=== PATIENT | male | born 1980 | race Caucasian/White ===

== ENCOUNTER 2017-10-25 09:01 | Outpatient (CLI) | payer OTHER | END 2017-10-25 09:02 | disposition home or self-care (01) | LOC: SC 09:01 | PROVIDERS: ATTEND Internal Medicine Pulmonary Disease | DX: G47.30 Sleep apnea, unspecified (principal); G47.10 Hypersomnia, unspecified; R06.83 Snoring; G47.8 Other sleep disorders | CPT/HCPCS: 99203; 99212 ==

== ENCOUNTER 2018-01-16 19:21 | Outpatient (CLI) | payer OTHER | END 2018-01-16 19:22 | disposition home or self-care (01) | LOC: SC 19:21 | PROVIDERS: ATTEND Internal Medicine Pulmonary Disease | DX: G47.33 Obstructive sleep apnea (adult) (pediatric) (principal); G47.61 Periodic limb movement disorder | CPT/HCPCS: 95810 ==

== ENCOUNTER 2018-02-08 09:06 | Outpatient (CLI) | payer OTHER | END 2018-02-08 09:07 | disposition home or self-care (01) | LOC: SC 09:06 | PROVIDERS: ATTEND Nurse Practitioner Family | DX: G47.33 Obstructive sleep apnea (adult) (pediatric) (principal); G47.61 Periodic limb movement disorder | CPT/HCPCS: 99212; 99214 ==

== ENCOUNTER 2018-04-26 11:08 | Outpatient (CLI) | payer OTHER | END 2018-04-26 11:09 | disposition home or self-care (01) | LOC: SC 11:08 | PROVIDERS: ATTEND Nurse Practitioner Family | DX: G47.33 Obstructive sleep apnea (adult) (pediatric) (principal) | CPT/HCPCS: 99212; 99214 ==

== ENCOUNTER 2018-06-05 10:16 | Outpatient (CLI) | payer OTHER | END 2018-06-05 10:17 | disposition home or self-care (01) | LOC: SC 10:16 | PROVIDERS: ATTEND Nurse Practitioner Family | DX: G47.33 Obstructive sleep apnea (adult) (pediatric) (principal) | CPT/HCPCS: 99212; 99214 ==

== ENCOUNTER 2018-09-19 10:12 | Outpatient (CLI) | payer OTHER | END 2018-09-19 10:13 | disposition home or self-care (01) | LOC: SC 10:12 | PROVIDERS: ATTEND Nurse Practitioner Family | DX: G47.33 Obstructive sleep apnea (adult) (pediatric) (principal) | CPT/HCPCS: 99212; 99214 ==

== ENCOUNTER 2018-12-25 10:23 | Outpatient (CLI) | payer OTHER ==
[2018-12-25 11:16] VITALS: BP 120/80
--- NOTE | 2018-12-25 11:16 | SLEEP CARE CONSULTATION ---
Information from patient questionnaire entered by Angela Rodriguez. I have reviewed and concur with the information entered by Angela Rodriguez. This document represents the service I personally performed and the decisions made by me, Tahira Lind, RN, MSN, WELDER ASSEMBLER. History of Present Illness Previous diagnosis: Mild, Obstructive Sleep Apnea-Hypopnea Syndrome AHI: 6.9 Reason for CPAP/BiPAP follow up: other (2 month follow up - pressure change) Equipment type: CPAP Equipment obtained from: [facility] Mask style: Full face Mask brand: Respironics Backup mask available: Yes Last cushion change: a week ago Prior sleep studies: Yes Year and Where: 2017 [facility], [place] CPAP Compliance Data - Data Reviewed with Patient Average duration of nightly device use: 5H 3M Compliance rate %: 70.0 Current pressure setting (cmH2O): 8-12 Humidity settin Heated hose settin Average residual AHI: 4.2 Subjective Missed days of use due to: reports: other (falling asleep on couch and training ) Patient concerns: reports: mask leak noise (every other night, less since mask cushion update a few days ago / he washes mask every 3 days. ), nasal congestion (mild, not interferring with CPAP use. ), dry mouth, nose, throat (dry day and night but worse at night. ), other. denies: aerophagia, mask discomfort, air blowing in eyes, condensation in mask/hose, epistaxis Observed to snore while using device: No Current pressure setting perceived as: comfortable On therapy, patient: reports: sleeping better, awakening more refreshed, being more awake and alert during the day, more rested overall, drowsiness while driving (twice and pulled over to rest. ) Initial [place] Sleepiness Scale score: 17 Current [place] Sleepiness Scale score: 9 Allergies and Home Medications Known drug allergies: No (cats and pollen) Home medication list reviewed: Yes Allergy and home medication list: Medication Name (generic/name brand) Strength & Dosage Excedrin prn Claritin 10mg tab as needed Zantac 150mg tab two as needed Flonase Two sprays per nostril as needed Allergy List Cats Pollen Review of Systems Review of systems same as previous: Yes Physical Exam Blood Pressure: 120/80 Cuff size: long Heart Rate: 75 O2 Saturation: 98 Height: 5 ft 10.75 in Weight: 194 lb Body Mass Index: 27.2 BMI Classification: Overweight Impression and Plan 1. Obstructive Sleep Apnea-Hypopnea Syndrome, mild, with good treatment compl iance and good apnea control. On CPAP therapy, there is improved sleep quality and feels more rested overall. To decrease mask leaks, in addition to changing mask cushion regularly, he is advised to clean mask daily as skin oils can cause mask to slip in sleep. To incorporate more easily in routine, he is advised to take mask to bathroom when gets up to wash teeth and wash mask then or use a CPAP wipe. This allows it to dry and be ready when he goes to bed. For his oral dryness, he is to increase humidity and reduce heated hose as discussed. Try a 5 humidity and 2 heated hose. He is planning on retiring in 6 months and starting the [facility] for [facility] of his CPAP. He was advised to contact [facility] for questions about if CPAP is paid for. I again discussed the benefit of achieving more sleep for optimal mental and physical function. If he is unable to get a minimum of 7 hours of sleep then 6 hours is goal to reduce health risks and sleepiness symptoms. Patient's apnea severity and rationale for treatment to reduce apnea, improve sleep quality and reduce cardiovascular and cerebrovascular events was reviewed. I also reviewed the benefit of consistent device use of CPAP for attention deficit. I also reviewed effect of weight to apnea risk. * Continue CPAP pressure at 8-10 cmH2O * adjsut humidity and heated hose * Wash mask daily * Notify me if snoring with mask or feeling that the pressure is too much or too little * Attempt to lose weight * Return for follow up in 6 months , or sooner if concerns arise I spent 100% of this 28 minute visit face to face with the patient with greater than 50% of this was spent time counseling the patient and coordination of care.
== END 2018-12-25 10:24 | disposition home or self-care (01) ==
LOC: SC 10:23
PROVIDERS: ATTEND Nurse Practitioner Family
DX: G47.33 Obstructive sleep apnea (adult) (pediatric) (principal)
CPT/HCPCS: 99212; 99214

== ENCOUNTER 2019-08-09 09:47 | Outpatient (CLI) | payer OTHER ==
--- NOTE | 2019-08-09 09:42 | SLEEP CARE CONSULTATION ---
Information from patient questionnaire entered by Anjelica Samuels. I have reviewed and concur with the information entered by Anjelica Samuels. This document represents the service I personally performed and the decisions made by me, Tahira Lind, RN, MSN, CARDIO TECH. History of Present Illness Service Date and Time: 08/09/2019 0900 Previous diagnosis: Mild, Obstructive Sleep Apnea-Hypopnea Syndrome AHI: 6.9 Reason for follow up: six month Equipment type: CPAP Equipment obtained from: [place] (getting supplies as needed) Mask style: Full face Backup mask available: Yes Last cushion change: a couple of weeks ago CPAP Compliance Data - Data Reviewed with Patient Average duration of nightly device use: 3.25 Compliance rate %: 23.3 (180) Current pressure setting (cmH2O): 8-10 Humidity settin Heated hose settin Average residual AHI: 9.4 Central apnea: 0.4 Obstructive apnea: 0.9 Hypopnea: 8.1 Average large leak: 1 hr 30 min Subjective Missed days of use due to: reports: other (compliance fell while working through marital difficulties, reduced CPAP use and not sleeping well. ) Patient concerns: reports: mask discomfort (wonders if mask too small), condensation in mask/hose (none recently ), dry mouth, nose, throat (dry mouth - humidity unit replaced in April and settings put to 3/3). denies: aerophagia, air blowing in eyes, mask leak noise, nasal congestion (using ), epistaxis Observed to snore while using device: No Current pressure setting perceived as: comfortable On therapy, patient: reports: sleeping better, awakening more refreshed, being more awake and alert during the day, more rested overall. denies: drowsiness while driving Initial [place] Sleepiness Scale score: 17 Allergies and Home Medications Home medication list reviewed: No (no changes ) Review of Systems Review of systems same as previous: Yes Physical Exam Height: 5 ft 10.75 in Weight: 193 lb (home weight - stable ) Body Mass Index: 27.1 BMI Classification: Overweight Impression and Plan 1. Obstructive Sleep Apnea-Hypopnea Syndrome, mild , with poor treatment compliance and elevated residual apnea. On CPAP therapy, the patient has better sleep quality and is more rested overall. Patient is pleased with benefit of CPAP. However, compliance fell while working through marital difficulties, with reduced CPAP use and not sleeping well. Questions answered as to goal of compliance and answered. The patients pressure will be changed to autoCPAP 9-12 cmH20 For elevation of residual AHI. Patient advised to contact me if pressure change is uncomfortable so that it can be adjusted. Goals for apnea control discussed. I also discussed other mask styles but patient states he is a mouth breather due to difficulty breathing through nose even with reduced nasal congestion from Flonase. Mask refitting will be ordered to reduce oral dryness as patient feels the mask may be too small and is slightly uncomfortable. Until then he is to adjust mask slightly tighter and trim oneill for a better seal. Oral dryness can be reduced by adjusting humidity setting higher and heated hose lower with rationale discussed. Patient aware how to adjust. Oral dryness can also be reduced by reducing mask leaks which can also reduce residual AHI. Patient advised that chronic oral dryness can affect dental health and advised to follow up with dentist. In addition, there are oral dryness products that can be used to reduce dryness. Patient to discuss best option with dentist as indicated. Patient's apnea severity and rationale for treatment to reduce apnea, improve sleep quality and reduce hypertension, cardiovascular and cerebrovascu lar events was reviewed. * * Changeauto CPAP pressure to 9-12 cmH2O * Notify me if snoring with mask or feeling that the pressure is too much or too little * Implement methods to reduce oral dryness * Mask refitting * Call this office if any problems using CPAP * Return for follow up in 2 months , or sooner if concerns arise Visit Type: Telehealth Video (to minimize risk of Covid 19 exposure) Video Type: [employer] Patient Location: Home Location of Provider: Home Patient agrees and consents to this telehealth visit type: Yes Patient agrees to have their insurance billed: Yes Time Spent with Patient (minutes): 25 Provider Statement: I spent 100% of the Telehealth Video Call with the patient with greater than 50% spent counseling the patient and coordination of care.
== END 2019-08-09 09:48 | disposition home or self-care (01) ==
LOC: SC 09:47
PROVIDERS: ATTEND Nurse Practitioner Family
DX: G47.33 Obstructive sleep apnea (adult) (pediatric) (principal)

== ENCOUNTER 2019-12-05 16:10 | Outpatient (CLI) | payer OTHER ==
--- NOTE | 2019-12-05 15:37 | SLEEP CARE CONSULTATION ---
Information from patient questionnaire entered by Laure Martinez. I have reviewed and concur with the information entered by Laure Martinez. This document represents the service I personally performed and the decisions made by me, Tahira Lind, RN, MSN, WHEAT COMBINE DRIVER. History of Present Illness Service Date and Time: 12/05/2019 1500 Previous diagnosis: Mild, Obstructive Sleep Apnea-Hypopnea Syndrome AHI: 6.9 Reason for follow up: other (2-month followup pressure change) Equipment obtained from: [facility] Mask style: Nasal Backup mask available: No (keep current mask when replaced ) Last cushion change: a couple of months ago Prior sleep studies: Yes Year and Where: 2017 [facility] Sleep [facility] Type of Sleep Study: Polysomnography HPI additional information: Debbie never called for mask refitting. Mask still seems too small. He will call supply [employer] to see if will change sizing. Humidity adjustment resolved oral dryness. Sleep Study - Results Prior sleep studies: Yes Year and Where: 2017 [facility] Sleep [facility] CPAP Compliance Data - Data Reviewed with Patient Average duration of nightly device use: 2 h 18 min Compliance rate %: 6.7 Current pressure setting (cmH2O): 9-12 Humidity settin Heated hose settin Average residual AHI: 5.9 Central apnea: 0 Obstructive apnea: 0 Hypopnea: 5.9 Average large leak: 2 h 15 min 35 sec Subjective Missed days of use due to: reports: other (living in with children and electricity not always available. ) Patient concerns: reports: mask discomfort (discomfort around cheeks that he feels is from mask too small ), mask leak noise, other (falling asleep without CPAP). denies: aerophagia, air blowing in eyes, condensation in mask/hose, nasal congestion, dry mouth, nose, throat, epistaxis Observed to snore while using device: No Current pressure setting perceived as: comfortable On therapy, patient: reports: sleeping better, awakening more refreshed, being more awake and alert during the day, more rested overall. denies: drowsiness while driving Initial [place] Sleepiness Scale score: 17 Allergies and Home Medications Known drug allergies: No Home medication list reviewed: No (no changes) Review of Systems Review of systems same as previous: Yes Physical Exam Height: 5 ft 10.75 in Weight: 195 lb Body Mass Index: 27.3 BMI Classification: Overweight Impression and Plan 1. Obstructive Sleep Apnea-Hypopnea Syndrome, mild, with poor treatment compliance and slight elevation of residual residual AHI that seem to be from mask leaks. The new PAP pressure is more comfortable. On CPAP therapy, the patient has better sleep quality and is more rested overall. To prevent falling asleep without CPAP, he is advised to put CPAP on before bed and to set a phone alarm. He will call to see if he can get a larger mask cushion. I will also mask refitting if larger cushion no better. Evidently the mask is so uncomfortable it is hard to use any length of time so his compliance will not get better until his mask is corrected to right size or different style that is more comfortable. He is advised to contact this office if he is unable to get his mask corrected so we can assist. I advised him to strive for a minimum of 6-7 hours of sleep for maximum benefit of treatment. Most people require 7-9 hours of sleep for optimal mental and physical health. Patient's apnea severity and rationale for treatment to reduce apnea, improve sleep quality and reduce cardiovascular and cerebrovascular events was reviewed. I also reviewed the benefit of consistent device use of CPAP for gastric reflux, depression/anxiety.Since patient has more severe apnea in supine position, patient advised to avoid supine sleep with pillow positioning if unable to use CPAP while ill or if without electricity to reduce apnea risk. * Continue auto CPAP pressure at 9-12 cmH2O * change mask size / style as indicated * Implement methods to obtain more sleep with CPAP. * Notify me if snoring with mask or feeling that the pressure is too much or too little * Call this office if any problems using CPAP * Return for follow up in 1-2 months , or sooner if concerns arise Visit Type: Telehealth Video Video Type: behaview Patient Location: Location of Provider: Office Patient agrees and consents to this telehealth visit type: Yes Patient agrees to have their insurance billed: Yes Time Spent with Patient (minutes): 21 Provider Statement: I spent 100% of the Telehealth Video Call with the patient with greater than 50% spent counseling the patient and coordination of care.
== END 2019-12-05 16:11 | disposition home or self-care (01) ==
LOC: SC 16:10
PROVIDERS: ATTEND Nurse Practitioner Family
DX: G47.33 Obstructive sleep apnea (adult) (pediatric) (principal)

== ENCOUNTER 2020-01-10 13:18 | Outpatient (CLI) | payer OTHER ==
--- NOTE | 2020-01-10 13:37 | SLEEP CARE CONSULTATION ---
Information from patient questionnaire entered by Anjelica Samuels. I have reviewed and concur with the information entered by Anjelica Samuels. This document represents the service I personally performed and the decisions made by me, Tahira Lind, RN, MSN, SCRAP BUNCH MAKER. History of Present Illness Service Date and Time: 01/10/2020 1318 Previous diagnosis: Mild, Obstructive Sleep Apnea-Hypopnea Syndrome AHI: 6.9 (in 2018) Reason for follow up: one month Equipment type: [facility] style: Full face Backup mask available: No (keep current) Last cushion change: 1-2 weeks ago to larger mask Prior sleep studies: Yes Year and Where: 2018 - [facility] HPI additional information: He was able to get a new larger mask size. This has reduced reduced mask leaks significantly. He talked to [facility] and they are aware of his mask problem where he is using the CPAP but the mask leaks are so large that data use shows less then true use. Sleep Study - Results Prior sleep studies: Yes Year and Where: 2018 [facility] CPAP Compliance Data - Data Reviewed with Patient Average duration of nightly device use: 3.5 Compliance rate %: 20 Current pressure setting (cmH2O): 9-12 Humidity settin Heated hose settin Average residual AHI: 5.7 (9 cmH20 90% pressure ) Average large leak: 3 hr 33 min 3 sec Subjective Patient concerns: reports: dry mouth, nose, throat (dry nose and mouth adjusted humidity better but not resolved). denies: aerophagia, mask discomfort, air blowing in eyes, mask leak noise, condensation in mask/hose, nasal congestion, epistaxis, other Observed to snore while using device: No Current pressure setting perceived as: comfortable On therapy, patient: reports: sleeping better, awakening more refreshed, being more awake and alert during the day, more rested overall. denies: drowsiness while driving Initial [place] Sleepiness Scale score: 17 (in 2018) Current [place] Sleepiness Scale score: 5 Allergies and Home Medications Known drug allergies: No Home medication list reviewed: Yes (no changes ) Review of Systems Review of systems same as previous: No Physical Exam Height: 5 ft 10.75 in Weight: 195 lb Body Mass Index: 27.3 BMI Classification: Overweight Impression and Plan 1. Obstructive Sleep Apnea-Hypopnea Syndrome, mild, with better treatment compliance and slight elevation of residual AHI. On CPAP therapy, the patient has better sleep quality and is more rested overall. Patient is very pleased with benefit of larger mask cushion as he is able to sleep better with his CPAP. However, it is still leaking around 3 plus hours so he is advised to adjust the mask cushion and to track his mask leaks on his device as instructed. In addition, he can track on a phone luke. Oral dryness can be reduced by adjusting heated hose lower. Printed instructions given on how to change humidity and heated hose settings with rationale explaining why to change. Oral dryness can also be reduced by reducing mask leaks. Patient advised that chronic oral dryness can affect dental health and advised to follow up with dentist. In add ition, there are oral dryness products that can be used to reduce dryness such as Biotene products, Dry mouth rinse and ACT. Patient to discuss best option with dentist. I again reviewed goals of CPAP use for maximum benefit of treatment and compliance goals. Patient's apnea severity and rationale for treatment to reduce apnea, improve sleep quality and reduce cardiovascular and cerebrovascular events was reviewed. * Continue auto CPAP pressure at 9-12 cmH2O nightly * Implement methods to reduce dryness symptoms * Notify me if snoring with mask or feeling that the pressure is too much or too little * Attempt to lose weight * Call this office if any problems using CPAP * Return for follow up in 1-2months , or sooner if concerns arise Visit Type: Telehealth Video Video Type: [employer] Patient Location: car Location of Provider: Office Patient agrees and consents to this telehealth visit type: Yes Patient agrees to have their insurance billed: Yes Time Spent with Patient (minutes): 19 Provider Statement: I spent 100% of the Telehealth Video Call with the patient with greater than 50% spent counseling the patient and coordination of care.
== END 2020-01-10 13:19 | disposition home or self-care (01) ==
LOC: SC 13:18
PROVIDERS: ATTEND Nurse Practitioner Family
DX: G47.33 Obstructive sleep apnea (adult) (pediatric) (principal); E66.3 Overweight; Z68.27 Body mass index [BMI] 27.0-27.9, adult

== ENCOUNTER 2020-02-11 14:18 | Outpatient (CLI) | payer OTHER ==
--- NOTE | 2020-02-11 14:23 | SLEEP CARE CONSULTATION ---
Information from patient questionnaire entered by Laure Martinez. I have reviewed and concur with the information entered by Laure Martinez. This document represents the service I personally performed and the decisions made by me, Velia Chow ARNP. History of Present Illness Service Date and Time: 02/11/2020 1400 Previous diagnosis: Mild, Obstructive Sleep Apnea-Hypopnea Syndrome AHI: 6.9 (in 2018) Reason for follow up: one month (followup) Equipment type: CPAP Equipment obtained from: [facility] (getting supplies as needed) Mask style: Full face Backup mask available: Yes (other mask) Last cushion change: 4 weeks ago Prior sleep studies: Yes Year and Where: 2017 [facility] HPI additional information: CHRISTINE CARTER was diagnosed to have mild, AHI 6.9, obstructive sleep apnea- hypopnea syndrome and returns via Telehealth visit today for CPAP therapy one month follow-up. Sleep Study - Results Prior sleep studies: Yes Year and Where: 2017 [facility] CPAP Compliance Data - Data Reviewed with Patient Average duration of nightly device use: 3 h 50 min Compliance rate %: 36.7 Current pressure setting (cmH2O): 9-12 Humidity settin Average residual AHI: 6.6 Average large leak: 3 h 43 min Subjective Patient concerns: reports: mask leak noise, nasal congestion. denies: aerop hagia, mask discomfort, air blowing in eyes, condensation in mask/hose, dry mouth, nose, throat, epistaxis, other Observed to snore while using device: No Current pressure setting perceived as: comfortable On therapy, patient: reports: sleeping better, awakening more refreshed, being more awake and alert during the day, more rested overall. denies: drowsiness while driving Initial [place] Sleepiness Scale score: 17 (in 2018) Current [place] Sleepiness Scale score: 10 Allergies and Home Medications Drug allergies reviewed: Yes (NKDA) Home medication list reviewed: Yes (no changes) Review of Systems Review of systems same as previous: Yes (no changes) Physical Exam Vital signs obtained and entered by: Telehealth visit to comply with Covid pandemic recommendations Height: 5 ft 10.75 in Impression and Plan 1. Obstructive Sleep Apnea-Hypopnea Syndrome, mild, with poor treatment compliance and fair apnea control with elevated residual AHI. On CPAP therapy, the patient has better sleep quality and is more rested overall. He has had less problem with dry mouth since turning off the heated hose. He is using a [employer] full face mask now for the last month and this seems to be working better for him. He has to tighten the headgear a lot to reduce air leaking. He has a full face oneill. His residual AHI is still elevated. He will try to adjust humidity to reduce dry mouth if needed but states the water runs out after 3-4 hours and there is an odor that wakes him up and he turns off machine. He states he has had the humidity element changed out on this machine twice since getting the machine. If he turns up the humidity it will run out faster. He is going to continue to try to reduce air leaks by adjusting mask and try to increase hours of use. He also is living in an and traveling. He states sometimes he is unable to use the CPAP due to power outages and not being able to run his generator for power, he cannot afford a battery backup. If he can increase his use and reduce air leaking his AHI should reduce and he can become compliant. Patient's apnea severity and rationale for treatment to reduce apnea, improve sleep quality and reduce cardiovascular and cerebrovascular events was reviewed. I also reviewed the benefit of consistent device use of CPAP for gastric reflux, depression and anxiety. * Continue auto CPAP pressure at 9-12 cmH2O * Notify me if snoring with mask or feeling that the pressure is too much or too little * Call this office if any problems using CPAP * Return for follow up in 1-2 months, or sooner if concerns arise Counseling Topics: Spare mask Visit Type: Telehealth Video Video Type: Melo Patient Location: Home Location of Provider: Office Patient agrees and consents to this telehealth visit type: Yes Patient agrees to have their insurance billed: Yes Time Spent with Patient (minutes): 18 Provider Statement: I spent 100% of the Telehealth Video Call with the patient with greater than 50% spent counseling the patient and coordination of care.
== END 2020-02-11 14:19 | disposition home or self-care (01) ==
LOC: SC 14:18
PROVIDERS: ATTEND Nurse Practitioner Family
DX: G47.33 Obstructive sleep apnea (adult) (pediatric) (principal)

== ENCOUNTER 2020-03-12 17:50 | Outpatient (CLI) | payer OTHER ==
--- NOTE | 2020-03-12 15:22 | SLEEP CARE CONSULTATION ---
Information from patient questionnaire entered by Laure Martinez. I have reviewed and concur with the information entered by Laure Martinez. This document represents the service I personally performed and the decisions made by , Velia Chow ARNP. History of Present Illness Service Date and Time: 03/12/2020 1500 Previous diagnosis: Mild, Obstructive Sleep Apnea-Hypopnea Syndrome AHI: 6.9 (in 2018) Reason for follow up: one month (followup) Equipment type: CPAP [facility] Mask style: Full face Backup mask available: Yes (old mask) Last cushion change: 2 weeks ago Prior sleep studies: Yes Year and Where: 2017 [facility] Type of Sleep Study: Polysomnography HPI additional information: CHRISTINE CARTER was diagnosed to have mild, AHI 6.9, obstructive sleep apnea- hypopnea syndrome and returns via Telehealth visit today for CPAP therapy one month follow-up. Sleep Study - Results Prior sleep studies: Yes Year and Where: 2017 [facility] CPAP Compliance Data - Data Reviewed with Patient Average duration of nightly device use: 4 h 34 min Compliance rate %: 53.3 Current pressure setting (cmH2O): 9-12 Humidity settin Average residual AHI: 4.0 Average large leak: 4 h 32 min Subjective Missed days of use due to: reports: other (power issue being in an RV; heating element malfunctioning) Patient concerns: reports: dry mouth, nose, throat (dry nose and mouth; using Flonase). denies: aerophagia, mask discomfort, air blowing in eyes, mask leak noise, condensation in mask/hose, nasal congestion, epistaxis, other Observed to snore while using device: No Current pressure setting perceived as: comfortable On therapy, patient: reports: sleeping better, awakening more refreshed, being more awake and alert during the day, more rested overall. denies: drowsiness while driving Initial [place] Sleepiness Scale score: 17 (in 2018) Current [place] Sleepiness Scale score: 11 Allergies and Home Medications Drug allergies reviewed: Yes (NKDA) Home medication list reviewed: Yes (no changes) Review of Systems Review of systems same as previous: Yes (no changes) Physical Exam Vital signs obtained and entered by: Telehealth visit due to Covid pandemic Height: 5 ft 10.75 in Impression and Plan 1. Obstructive Sleep Apnea-Hypopnea Syndrome, mild, with fair treatment compliance and good apnea control. On CPAP therapy, the patient has better sleep quality and is more rested overall. He gets some dry mouth and nose but is not using the humidifier due to heating element issue he has had with machine. It "rubin" through the water and he gets burnt plastic fumes. Since he has not been using the humidity chamber, he has been able to wear the mask for longer periods and more nights. He will continue to increase his usage to increase his compliance. Patient advised that chronic oral dryness can affect dental health and advised to follow up with dentist. He voiced understanding. [facility] and they are trying to get him a battery backup since he is living [place] in a RV. Sometimes he cannot run his CPAP past 9:30 PM due to RV park restrictions. He will be able to use his CPAP more by getting this battery backup for his machine. Patient's apnea severity and rationale for treatment to reduce apnea, improve sleep quality and reduce cardiovascular and cerebrovascular events was reviewed. I also reviewed the benefit of consistent device use of CPAP for gastric reflux and depression/anxiety. * Change auto CPAP pressure to 9 cmH2O * Notify me if snoring with mask or feeling that the pressure is too much or too little * Attempt to lose weight * Call this office if any problems using CPAP * Return for follow up in 3 months, or sooner if concerns arise Counseling Topics: Spare mask, Weight loss health impact Visit Type: Telehealth Video Video Type: [facility] Patient Location: Home Location of Provider: Office Patient agrees and consents to this telehealth visit type: Yes Patient agrees to have their insurance billed: Yes Time Spent with Patient (minutes): 21 Provider Statement: I spent 100% of the Telehealth Video Call with the patient with greater than 50% spent counseling the patient and coordination of care.
== END 2020-03-12 17:51 | disposition home or self-care (01) ==
LOC: SC 17:50
PROVIDERS: ATTEND Nurse Practitioner Family
DX: G47.33 Obstructive sleep apnea (adult) (pediatric) (principal)

== ENCOUNTER 2020-09-08 08:43 | Outpatient (CLI) | payer OTHER ==
--- NOTE | 2020-09-08 10:12 | Ultrasound Report ---
PROCEDURE: Abdomen Limited INDICATIONS: Elevated liver enzymes TECHNIQUE: Real-time focused scanning was performed of the abdomen, with image documentation. COMPARISON: None FINDINGS: Increased hepatic parenchymal echogenicity with coarsened hepatic echotexture. There is bethea ggestion of mild contour nodularity in the liver, although this is not entirely definitive. The gallb ladder and biliary ducts are unremarkable. The right kidney is within normal limits. Visualized proxi mal portions of the pancreas are unremarkable. IMPRESSION: Increased hepatic parenchymal echogenicity with coarsened hepatic echotexture and suggestion of possi ble hepatic nodularity. Findings are suggestive of cirrhosis or another diffuse hepatocellular proces s. Reviewed by: Greg Reyes MD on 09/08/2020 10:11 AM PDT Approved by: Greg Reyes MD on 09/08/2020 10:11 AM PDT Station ID: [id number]
== END 2020-09-08 08:44 | disposition home or self-care (01) ==
LOC: DI 08:43
PROVIDERS: ATTEND Internal Medicine
DX: R74.8 Abnormal levels of other serum enzymes (principal); K21.9 Gastro-esophageal reflux disease without esophagitis; K58.9 Irritable bowel syndrome, unspecified